=== PATIENT | male | born 1990 | race Caucasian/White ===

== ENCOUNTER 2019-01-31 15:22 | Emergency (ER) | payer SELFPAY ==
[~2019-01-31] VITALS: Ht 162.6 cm; Wt 92.5 kg
[2019-01-31 15:30] VITALS: BP 159/81; PULSE 94; RESP 18; Ht 162.6 cm; Wt 92.5 kg
[2019-01-31] MEDS ORDERED: ACETAMINOPHEN 650MG/20.3ML CUP PO STA (16:19)
[2019-01-31] MEDS ORDERED: LIDOCAINE 2%/EPI MPF (SDV) 20 ML VIAL INJ STA (16:19)
--- NOTE | 2019-01-31 16:23 | ERD ---
ER Documentation Chief Complaint Chief Complaint PUNCTURE WOUND RIGHT ELBOW S/P FALL HPI 28-year-old male previously healthy, right-handed, presents to the emergency department, complaining of a right elbow laceration that occurred approximately 2 hours prior to arrival when the patient fell at work landing on his right elbow. The pain is sharp, constant, he denies distal weakness, numbness or tingling. ROS All systems reviewed and are negative except as per history of present illness. Allergies Allergies: Coded Allergies: Penicillins (Unverified Allergy, Unknown, RASH, 01/31/19) ciprofloxacin (Unverified Allergy, Unknown, RASH, 01/31/19) PMhx/Soc Medical and Surgical Hx: pt denies Medical Hx, pt denies Surgical Hx History of Surgery: No Anesthesia Reaction: No Hx Neurological Disorder: No Hx Respiratory Disorders: No Hx Cardiac Disorders: No Hx Psychiatric Problems: No Hx Miscellaneous Medical Probl: No Hx Alcohol Use: Yes (OCCASSIONAL) Hx Substance Use: No Hx Tobacco Use: No FmHx Family History: No diabetes, No coronary disease Physical Exam Vitals Vital Signs Date Temp Pulse Resp B/P (MAP) Pulse Ox O2 O2 Flow FiO2 Time Delivery Rate 01/31/19 98.8 94 18 159/81 97 15:30 (107) Physical Exam Patient alert, oriented, vital signs stable. HEAD: Normocephalic, atraumatic. EYES: PERRLA, EOMI, Sclera and conjunctiva appear normal. NOSE: Clear and patent nostrils. EARS: Canals clear, tympanic membranes WNL. MOUTH: normal lips and tongue, no oral lesions. THROAT: Normal oropharynx, no tonsillar exudates. NECK: Supple, No lymphadenopathy. Full ROM without pain or tenderness. HEART: RRR, no rubs, murmurs, clicks or gallops. LUNGS: Clear to auscultation. ABDOMEN: Soft, non-tender without masses or hepatosplenomegaly. EXTREMITIES: No edema bilaterally. BACK: Full ROM, no deformity, normal back exam NEURO: Cranial nerves grossly intact, no motor or sensory deficit SKIN: Right elbow with 3 cm irregular laceration, no foreign body seen, no tendon injury, no vascular bleeding. Results 24 hrs Current Medications Medications Dose Sig/Subha Start Time Status Last (Trade) Ordered Route PRN Stop Time Admin Dose Reason Admin Diphtheria/ 0.5 ml ONCE ONCE 01/31/19 UNV Tetanus/Acell IM* 16:30 01/31/19 Pertussis 16:31 (Adacel) Lidocaine/ 20 ml ONCE STAT 01/31/19 UNV Epinephrine INJ 16:19 01/31/19 (Xylocaine 16:20 2%/ Epi Mpf(Sdv)) 650 mg ONCE STAT 01/31/19 UNV Acetaminophen PO 16:19 01/31/19 (Tylenol 16:20 Liquid) Ibuprofen 400 mg ONCE ONCE 01/31/19 UNV (Motrin) PO 16:30 01/31/19 16:31 Procedures/MDM Vital signs stable, the patient was evaluated for foreign body, open fracture, nerve/vascular/tendon injury. Neurovascular exam intact. Pertinent data: Procedure: Laceration repair The procedure was explained and consent obtained. Anesthesia: 1% lidocaine with epinephrine locally Location: Right elbow 3 Tendon/Joint/Nerves: No injury Foreign body: None detected after copious irrigation and exploration Technique: [place] Complexity: No subcutaneous sutures/mucosal repair/edge excision Post Closure Length: 3cm The patient tolerated the procedure well without complications. clinical impression and possible complications like infection and a scar where discussed with the patient who agreed with management. The patient is stable to be treated outpatient and will be discharged home with a Rx for Bactrim and ibuprofen, some side effects of prescribed medications (headache, rash, nausea, vomiting, diarrhea, interactions with other medications) were reviewed. The patient was instructed to follow up with the primary care provider in the next 48h for wound check. If symptoms persist, worsen or new symptoms develop, then patient should return to the ED immediately. [place] can be removed in 7 days. Instructions explained and given directly by me to the patient with acknowledgment and demonstrated understanding. Disclaimer: Inadvertent spelling and grammatical errors are likely due to EHR/dictation software use and do not reflect on the overall quality of patient care. Also, please note that the electronic time recorded on this note does not necessarily reflect the actual time of the patient encounter. Departure Diagnosis: Primary Impression: Laceration of right elbow Condition: Stable Additional Instructions: Thank you very much for allowing us to participate in your care. Your health and safety is our top priority at [facility]. Call your primary care doctor TOMORROW for an appointment during the next 2-4 days and bring all the information provided. Have prescriptions filled and follow precisely the directions on the label. If the symptoms get worse and your provider is unavailable, return to the Emergency Department immediately. MARTHA MENDEZ MD Jan 31, 2019 16:23
[2019-01-31] MEDS ORDERED: IBUPROFEN 200 MG TAB PO ONE (16:30)
[2019-01-31] MEDS ORDERED: DIPHTH/TET/ACEL PERTUSS (ADULT) 0.5 ML VIAL IM* ONE (16:30)
[2019-01-31] MEDS ORDERED: HYDR-4011 PO (17:03)
[2019-01-31] MEDS ORDERED: SULF1TAB31 PO (17:03)
== END 2019-01-31 17:32 | disposition home or self-care (01) ==
LOC: FTE 15:22
DX: S51.011A Laceration without foreign body of right elbow, initial encounter (principal); W18.39XA Other fall on same level, initial encounter; Y92.89 Other specified places as the place of occurrence of the external cause; Z23 Encounter for immunization
CPT/HCPCS: 90471; 90715

== ENCOUNTER 2019-02-11 09:44 | Emergency (ER) | payer SELFPAY ==
[~2019-02-11] VITALS: Ht 167.6 cm; Wt 92.0 kg
[~2019-02-11 09:44] MED LIST: HYDR-4011 PO; SULF1TAB31 PO
[2019-02-11 09:47] VITALS: BP 143/78; PULSE 79; RESP 18; Ht 167.6 cm; Wt 92.0 kg
--- NOTE | 2019-02-11 10:08 | ERD ---
ER Documentation Chief Complaint Chief Complaint for staple removal on rt elbow HPI 28-year-old male presents for staple removal to the right elbow. Patient presented 10 days previously after sustaining work injury falling to his right elbow and cutting himself with a piece of sheet metal. Patient received 4 stapl es to the right elbow as well as Tdap at previous visit. He notes lesion healing well, denies discharge, warmth, swelling, fever, chills. Denies any current pain. ROS All systems reviewed and are negative except as per history of present illness. Medications Home Meds Active Scripts Hydrocodone/Acetaminophen ([place] 5-325 Tablet) 1 Each Tablet, 1 TAB PO QHS PRN for PAIN for 3 Days, #3 TAB Prov:MARTHA MENDEZ MD 01/31/19 Sulfamethoxazole/Trimethoprim* (Bactrim Ds* Tablet) 1 Each Tablet, 1 TAB PO BID for 5 Days, #10 TAB Prov:MARTHA MENDEZ MD 01/31/19 Allergies Allergies: Coded Allergies: Penicillins (Unverified Allergy, Unknown, RASH, 01/31/19) ciprofloxacin (Unverified Allergy, Unknown, RASH, 01/31/19) PMhx/Soc History of Surgery: No Anesthesia Reaction: No Hx Neurological Disorder: No Hx Respiratory Disorders: No Hx Cardiac Disorders: No Hx Psychiatric Problems: No Hx Miscellaneous Medical Probl: No Hx Alcohol Use: Yes (OCCASSIONAL) Hx Substance Use: No Hx Tobacco Use: No FmHx Family History: No diabetes, No coronary disease, No other Physical Exam Vitals Vital Signs Date Temp Pulse Resp B/P (MAP) Pulse Ox O2 O2 Flow FiO2 Time Delivery Rate 02/11/19 98.1 79 18 143/78 99 09:47 (99) Physical Exam Constitutional: Well developed. Well nourished. No acute distress Head/Eyes: Atraumatic. Normocephalic. PERRL. EOMI ENT: Moist mucous membranes. Voice normal. Neck: Supple. No lymphadenopathy Extremities: No edema, Full ROM of the affected extremity. Skin: Dry. No rashes. Warm. 3 cm linear laceration to the right elbow with [address] Healing well. No visible erythema, edema, warmth, purulent discharge. Neurological: Alert and oriented X 3. Normal speech Psychiatric: Normal mood. Normal affect Procedures/MDM MDM: Patient presents for wound recheck and staple removal. Patient has [address], to right forearm/elbow The patient is well appearing and afebrile. The wound is well healed with edges well approximated and there is no redness, swelling, or discharge from the wound that would suggest infection. Advised to use sun protection/avoid sun exposure to the wound. Patient was discharged in stable condition and advised to f/u with PCP in 2-3 days and return to emergency room sooner if worsening or new symptoms. Departure Diagnosis: Primary Impression: Encounter for removal of sutures Condition: Good Patient Instructions: Staple Removal, No Complication Additional Instructions: You were seen today for staple removal to your right elbow. 4 cat were removed, at this time there is no evidence of infection. However your wound is still healing, it is advised that you keep the area clean and dry and wear a sterile bandage while you are at work event any further infection. Please return to the ED if you notice any fever, chills, swelling, warmth, or discharge. ALPESH HENRIQUEZ PA-C Feb 11, 2019 10:08
== END 2019-02-11 11:02 | disposition left against medical advice (07) ==
LOC: FTE 09:44
DX: Z48.02 Encounter for removal of sutures (principal)
CPT/HCPCS: 99281